=== PATIENT | female | born 1945 | race Caucasian/White ===

== ENCOUNTER 2022-06-20 11:17 | Emergency (ER) | payer MEDICARE, SELFPAY ==
[2022-06-20 11:29] VITALS: BP 213/95; PULSE 89; RESP 18; TEMP 36.1; O2SAT 96; BMI 27.8
--- NOTE | 2022-06-20 11:53 | DI.RAD.S_ITS ---
PROCEDURE: XR CHEST 2V INDICATIONS: Possible stroke TECHNIQUE: 2 views of the chest were acquired. COMPARISON: None. FINDINGS: Surgical changes and devices: None. Lungs and pleura: Lungs are clear. No pleural effusions or pneumothorax. Mediastinum: Mediastinal contours are normal. Heart size is normal. Bones and chest wall: No suspicious bony abnormalities. Soft tissues appear unremarkable. IMPRESSION: No acute cardiopulmonary pathology. Dictated by: Balbir Perry M.D. on 06/20/2022 at 12:30 Approved by: Balbir Perry M.D. on 06/20/2022 at 12:30
--- NOTE | 2022-06-20 11:54 | DI.CT.S_ITS ---
PROCEDURE: CT HEAD/BRAIN WO CON INDICATIONS: aphasia now resolved TECHNIQUE: Noncontrast 4.5 mm thick angled axial sections acquired from the foramen magnum to the vertex, with coronal and sagittal reformats. For radiation dose reduction, the following was used: automated exposure control, adjustment of mA and/or kV according to patient size. COMPARISON: None. FINDINGS: Image quality: Excellent. CSF spaces: Basal cisterns are patent. No extra-axial fluid collections. Ventricles are normal in size and shape. Brain: No midline shift. No intracranial masses or hemorrhage. Love-white matter interface is normal. Uyjk-rj-rgglxfef chronic microvascular ischemic changes manifesting as areas of hypoattenuation in the deep and periventricular white matter. Skull and face: Calvarium and visualized facial bones are intact, without suspicious lesions. Sinuses: Visualized sinuses and mastoids are clear. IMPRESSION: No acute intracranial finding. Dictated by: Kvng Garcia M.D. on 06/20/2022 at 12:19 Approved by: Kvng Garcia M.D. on 06/20/2022 at 12:21
[2022-06-20 12:09] LABS: Add Manual Diff / Slide Review NO; Basophils Absolute Auto 100 /uL (0-100); Eosinophils Absolute Auto 300 /uL (0-450); Eosinophils Percent Auto 3.6 % (2-4); Hematocrit 50.4 % (36-46); Hemoglobin 17.1 g/dL (12.0-16.0); Lymphocytes Absolute Auto 2000 /uL (1100-4500); Lymphocytes Percent Auto 28.1 % (25-40); Mean Corpuscular HGB Conc 33.8 % (30-36); Mean Corpuscular Hemoglobin 29.4 PG (26-34); Mean Corpuscular Volume 86.8 fL (80-100); Monocytes Absolute Auto 500 /uL (0-900); Neutrophils Absolute Auto 4300 /uL (1500-7000); Neutrophils Percent Auto 60.3 % (50-75); Platelet Count 239 X10^3/uL (150-400); Red Blood Cell Count 5.81 X10^6/uL (4.0-5.2); Red Cell Distribution Width 13.5 % (11.6-14.8); White Blood Cell Count 7.2 X10^3/uL (4.5-11.0)
[2022-06-20 12:10] LABS: Prothrombin Time 11.7 SECONDS (10.1-12.7)
[2022-06-20 12:15] LABS: Alanine Aminotransferase 40 IU/L (<35); Albumin 4.6 g/dL (3.5-5.0); Albumin Globulin Ratio 1.2 (1.0-2.8); Alkaline Phosphatase 100 U/L (38-126); Aspartate Aminotransferase 47 IU/L (14-36); BUN Creatinine Ratio 16.7 (6-22); Bilirubin Total 0.8 mg/dL (0.2-1.3); Blood Urea Nitrogen 16 mg/dL (7-17); Calcium 9.4 mg/dL (8.4-10.2); Carbon Dioxide 27 mmol/L (22-32); Chloride 103 mmol/L (98-107); Creatine Kinase 57 U/L (30-135); Estimated Glomerular Filt Rate > 60 mL/min (>60); Globulin 3.7 g/dL (1.7-4.1); Glucose 141 mg/dL (80-110); HEMOLYSIS 18 (0-50); Magnesium 1.9 mg/dL (1.6-2.3); Sodium 142 mmol/L (137-145); Total Protein 8.3 g/dL (6.3-8.2)
[2022-06-20 12:26] LABS: Troponin I < 0.012 ng/mL (0.01-0.034)
--- NOTE | 2022-06-20 13:05 | DI.CT.S_ITS ---
PROCEDURE: CT ANGIO HEAD AND NECK INDICATIONS: ?TIA TECHNIQUE: Noncontrast images were performed earlier in the day and not repeated. After the administration of intravenous contrast, 1 mm thick sections acquired from the aortic arch through the [place] of [place]. Post-contrast 4.5 mm thick sections then re-acquired from the foramen magnum to the vertex. 3-dimensional xmmzkzp-uaojoaqce-chdzrhvzog (MIP) and/or volume rendering reformats were acquired of the central intracranial vasculature and neck separately. For radiation dose reduction, the following was used: automated exposure control, adjustment of mA and/or kV according to patient size. COMPARISON: [facility], CT, CT HEAD/BRAIN WO CON, 06/20/2022, 12:07. FINDINGS: Image quality: Limited by bolus timing, with venous contamination. BRAIN: CSF spaces: Ventricles are normal in size and shape. Basal cisterns are patent. No extra-axial fluid collections. Brain: No midline shift. No intracranial bleeds or masses. Love-white matter interface appears intact. Skull and face: Calvarium and facial bones appear intact, without suspicious lesions. Orbits appear normal. Sinuses: Sinuses and mastoids are clear. HEAD CT ANGIOGRAPHY: Anterior circulation: Intracranial internal carotid arteries are normal in size and flow. The flow within the paired anterior cerebral arteries is normal and symmetric. The flow within the middle cerebral arteries is normal and symmetric. The anterior communicating artery is seen. No aneurysms are seen. Posterior circulation: Visualized portions of the vertebral arteries demonstrate normal caliber, and join to form a normal appearing basilar artery. Flow within the posterior cerebral arteries is normal and symmetric. No aneurysms are seen. NECK CT ANGIOGRAPHY: Carotid system: The great vessels demonstrate a conventional anatomy as they arise from the aortic arch. The origins of the common carotid arteries appear patent. The common carotid arteries demonstrate normal caliber and courses. The bifurcation regions are both widely patent. The internal carotid arteries demonstrate normal calibers. Tortuosity is seen of the internal carotid arteries. Posterior circulation: The origins of the vertebral arteries both appear widely patent. The more superior extracranial portions of both vertebral arteries also demonstrate normal courses and calibers. They join to form a normal appearing basilar artery. Soft tissues: Visualized neck soft tissues demonstrate no suspicious abnormalities. Bones: No suspicious bony lesions. Visualized cervical spine appears normally aligned. Moderate lower cervical spine degenerative changes are noted. IMPRESSION: No significant intracranial arterial abnormality is seen. Within the arteries of the neck, no hemodynamically significant stenosis can be seen. Any quantitative measurements of stenosis were performed using NASCET criteria. Dictated by: Gregory Mcdaniel M.D. on 06/20/2022 at 12:46 Approved by: Gregory Mcdaniel M.D. on 06/20/2022 at 12:48
--- NOTE | 2022-06-20 13:48 | ED.NEUROSD ---
HPI - Neuro Symptoms/Deficit <Armando Farr PA-C - Last Filed: 06/20/22 14:23> General Chief Complaint: Neuro Symptoms/Deficit Stated Complaint: TIA on Monday Time Seen by Provider: 06/20/22 12:03 Source: patient Mode of arrival: Ambulatory History of Present Illness HPI Narrative: 77-year-old female with no reported past medical history presents to the ED with a brief episode of word-finding difficulty. Patient states that the episode occurred 3 days prior to arrival, upon awakening when she tried to speak with her . Patient states that she was unable to get out the words she wanted, was speaking inappropriate words instead. Patient states she was aware of this happening at the time, the episode only lasted for a few minutes and then resolved. Patient states that she had no other symptoms at the time including chest pain, shortness of breath, headache, vision disturbances, numbness, tingling, weakness. Patient denies having any such episodes prior to this. Patient states that she usually has high blood pressure when under stress, but otherwise normotensive. Endorses that she is stressed today due to this episode and coming into the ED. in the ED, patient denies any symptoms. On Anticoagulants: No Related Data Allergies Allergy/AdvReac Type Severity Reaction Status Date / Time brompheniramine Allergy Verified 06/20/22 11:39 [From Dimetapp (brompheniramine-PPA)] phenylpropanolamine Allergy Verified 06/20/22 11:39 [From Dimetapp (brompheniramine-PPA)] sulfamethoxazole Allergy Verified 06/20/22 11:38 [From ] trimethoprim [From ] Allergy Verified 06/20/22 11:38 epinephrine AdvReac Verified 06/20/22 11:38 Review of Systems <Armando Farr PA-C - Last Filed: 06/20/22 14:23> Review of Systems ROS Unobtainable: All systems reviewed & are unremarkable except as noted in HPI and below Constitutional Constitutional: Denies chills, Denies fatigue, Denies fever(s), Denies frequent falls, Denies lethargy and Denies weakness Eyes Eyes: Denies change in vision, Denies eye discharge, Denies irritation and Denies loss of vision ENT Ears, Nose, Mouth, and Throat: Denies change in voice, Denies dizziness, Denies neck pain, Denies sore throat and Denies throat swelling Cardiovascular Cardiovascular: Denies chest pain, Denies irregular heart rhythm, Denies lightheadedness, Denies palpitations, Denies dyspnea, Denies dyspnea on exertion and Denies orthopnea Respiratory Respiratory: Denies cough, Denies dyspnea, Denies dyspnea on exertion and Denies wheezing Gastrointestinal Gastrointestinal: Denies abdominal pain, Denies change in bowel habits, Denies diarrhea, Denies nausea and Denies vomiting Genitourinary Genitourinary: Denies hematuria, Denies flank pain, Denies urinary incontinence and Denies urinary urgency Musculoskeletal Musculoskeletal: Denies back pain, Denies muscle weakness, Denies neck pain, Denies numbness and Denies tingling Integumentary/Breasts Skin/Breast: Denies pruritus, Denies erythema, Denies rash and Denies wounds Neurologic Neurologic: Denies behavioral changes, Denies confusion, Denies dizziness, Denies frequent falls, Denies loss of vision, Denies numbness, Denies tingling and Denies weakness Comments: Brief episode of word-finding difficulty Psychiatric Psychiatric: Denies anxiety, Denies behavioral changes, Denies confusion, Denies depression, Denies homicidal ideation and Denies suicidal ideation Endocrine Endocrine: Denies fatigue, Denies flushing and Denies palpitations Hematologic/Lymphatic Hematologic/Lymphatic: Denies easy bruising On Anticoagulants: No Allergic/Immunologic Allergic/Immunologic: Denies urticaria, Denies throat swelling and Denies wheezing Patient History <Armando Farr PA-C - Last Filed: 06/20/22 14:23> Social History Smoking Status: Never smoker Smoking Status: Never smoker Substance Use Type: does not use Exam <Armando Farr PA-C - Last Filed: 06/20/22 14:23> Narrative Exam Narrative: Const General:?cooperative, healthy appearing and comfortable [facility] Head:?normal to inspection Ears:?hearing grossly normal bilaterally Nose:?external nose normal Face and sinus:?normal facial exam and sinuses nontender Mouth:?oral mucosae normal Throat:?posterior oropharynx normal Eyes General:?appearance normal, both eyes and all related structures Neck Neck:?normal visual inspection and no lymphadenopathy noted Resp Effort & Inspection:?normal respiratory effort Auscultation:?clear to auscultation bilaterally Cardio Rate:?regular rate Rhythm:?regular rhythm Neuro General:?patient alert, patient awake and patient oriented x3; PERRLA, CN 1 through 12 intact bilaterally; gait normal; negative vkchae-wm-xmnt; negative pronator drift Initial Vital Signs Initial Vital Signs: Vital Signs Temperature 97.0 F L 06/20/22 11:29 Pulse Rate 89 06/20/22 11:29 Respiratory Rate 18 06/20/22 11:29 Blood Pressure 213/95 H 06/20/22 11:29 Pulse Oximetry 96 06/20/22 11:29 Oxygen Delivery Method 06/20/22 11:29 <Fred Bazzi DO - Last Filed: 06/20/22 15:10> Initial Vital Signs Initial Vital Signs: Vital Signs Temperature 97.0 F L 06/20/22 11:29 Pulse Rate 89 06/20/22 11:29 Respiratory Rate 18 06/20/22 11:29 Blood Pressure 213/95 H 06/20/22 11:29 Pulse Oximetry 96 06/20/22 11:29 Oxygen Delivery Method 06/20/22 11:29 Course <Armando Farr PA-C - Last Filed: 06/20/22 14:23> Orders Ordered: ED Orders 06/20/22 11:45 Complete Blood Count AUTO DIFF Stat Comprehensive Metabolic Panel Stat Magnesium Stat Prothrombin Time INR Stat Troponin & CK Cardiac Panel Stat 06/20/22 11:48 EKG-12 Lead Routine 06/20/22 11:53 XR chest 2V Stat 06/20/22 11:54 CT head/brain wo con Stat 06/20/22 13:05 CT angio head and neck Stat Vital Signs Vital signs: Vital Signs - 8 hr 06/20/22 11:29 06/20/22 14:35 Temperature 97.0 F L Pulse Rate 89 77 Respiratory Rate 18 17 Blood Pressure 213/95 H 161/77 H Pulse Oximetry 96 96 Oxygen Delivery Method Room Air Room Air <Fred Bazzi DO - Last Filed: 06/20/22 15:10> Orders Ordered: ED Orders 06/20/22 11:45 Complete Blood Count AUTO DIFF Stat Comprehensive Metabolic Panel Stat Magnesium Stat Prothrombin Time INR Stat Troponin & CK Cardiac Panel Stat 06/20/22 11:48 EKG-12 Lead Routine 06/20/22 11:53 XR chest 2V Stat 06/20/22 11:54 CT head/brain wo con Stat 06/20/22 13:05 CT angio head and neck Stat Vital Signs Vital signs: Vital Signs - 8 hr 06/20/22 11:29 06/20/22 14:35 Temperature 97.0 F L Pulse Rate 89 77 Respiratory Rate 18 17 Blood Pressure 213/95 H 161/77 H Pulse Oximetry 96 96 Oxygen Delivery Method Room Air Room Air MDM - Neuro Symptoms/Deficit <Armando Farr PA-C - Last Filed: 06/20/22 14:23> Lab Data Attestation: I reviewed the patient's lab results. Result diagrams: 06/20/22 11:45 06/20/22 11:45 Labs: Lab Results 06/20/22 06/20/22 06/20/22 Range/Units 11:45 11:45 11:45 WBC 7.2 (4.5-11.0) X10^3/uL RBC 5.81 H (4.0-5.2) X10^6/uL Hgb 17.1 H (12.0-16.0) g/dL Hct 50.4 H (36-46) % MCV 86.8 (80-100) fL MCH 29.4 (26-34) PG MCHC 33.8 (30-36) % RDW 13.5 (11.6-14.8) % Plt Count 239 (150-400) X10^3/uL Neut % (Auto) 60.3 (50-75) % Lymph % (Auto) 28.1 (25-40) % Boundary % (Auto) 7.0 (3-14) % Eos % (Auto) 3.6 (2-4) % Baso % (Auto) 1.0 (0-2) % Neut # (Auto) 4300 (4647-3729) /uL Lymph # (Auto) 2000 (6682-8296) /uL Bound[place] # (Auto) 500 (0-900) /uL Eos # (Auto) 300 (0-450) /uL Baso # (Auto) 100 (0-100) /uL PT 11.7 (10.1-12.7) SECONDS INR 1.0 (0.9-1.3) Sodium 142 (137-145) mmol/L Potassium 4.0 (3.4-5.1) mmol/L Chloride 103 (98-107) mmol/L Carbon Dioxide 27 (22-32) mmol/L BUN 16 (7-17) mg/dL Creatinine 0.96 (0.52-1.04) mg/dL Estimated GFR > 60 (>60) mL/min BUN/Creatinine Ratio 16.7 (6-22) Glucose 141 H (80-110) mg/dL Calcium 9.4 (8.4-10.2) mg/dL Magnesium 1.9 (1.6-2.3) mg/dL Total Bilirubin 0.8 (0.2-1.3) mg/dL AST 47 H (14-36) IU/L ALT 40 H (<35) IU/L Alkaline Phosphatase 100 (38-126) U/L Total Creatine Kinase 57 (30-135) U/L CK-MB (CK-2) TNP CK-MB (CK-2) Rel Index TNP Troponin I < 0.012 (0.01-0.034) ng/mL Total Protein 8.3 H (6.3-8.2) g/dL Albumin 4.6 (3.5-5.0) g/dL Globulin 3.7 (1.7-4.1) g/dL Albumin/Globulin Ratio 1.2 (1.0-2.8) Urine Dip Bedside Urine Glucose Negative Bedside Urine Bilirubin - Negative Bedside Urine Ketone - Negative Urine Specific [place] 1.015 Bedside Urine Occult Blood - Negative Bedside Urine pH 6 Bedside Urine Protein - Negative Bedside Urine Urobilinogen - Negative Bedside Urine Nitrite - Negative Bedside Urine Leukocytes - Negative Esterase Imaging Data CTA - brain/neck: Radiologist's Impression: PROCEDURE:? CT ANGIO HEAD AND NECK ? INDICATIONS:? ?TIA ? TECHNIQUE:? Noncontrast images were performed earlier in the day and not repeated.? ? After the administration of intravenous contrast, 1 mm thick sections acquired from the aortic arch through the [place] of [place].? Post-contrast 4.5 mm thick sections then re-acquired from the foramen magnum to the vertex.? 3-dimensional gauyces-oearwwvjd-idvxdgovph (MIP) and/or volume rendering reformats were acquired of the central intracranial vasculature and neck separately. For radiation dose reduction, the following was used:? automated exposure control, adjustment of mA and/or kV according to patient size.? ? COMPARISON:? [facility], CT, CT HEAD/BRAIN WO CON, 06/20/2022, 12:07. ? FINDINGS:? Image quality:? Limited by bolus timing, with venous contamination. ? BRAIN:? CSF spaces:? Ventricles are normal in size and shape.? Basal cisterns are patent.? No extra-axial fluid collections.? ? Brain:? No midline shift.? No intracranial bleeds or masses.? Love-white matter interface appears intact.? ? Skull and face:? Calvarium and facial bones appear intact, without suspicious lesions.? Orbits appear normal.? ? Sinuses:? Sinuses and mastoids are clear.? ? HEAD CT ANGIOGRAPHY:? Anterior circulation:? Intracranial internal carotid arteries are normal in size and flow.? The flow within the paired anterior cerebral arteries is normal and symmetric.? The flow within the middle cerebral arteries is normal and symmetric.? The anterior communicating artery is seen.? No aneurysms are seen.? ? Posterior circulation:? Visualized portions of the vertebral arteries demonstrate normal caliber, and join to form a normal appearing basilar artery.? Flow within the posterior cerebral arteries is normal and symmetric.? No aneurysms are seen.? ? NECK CT ANGIOGRAPHY:? Carotid system:? The great vessels demonstrate a conventional anatomy as they arise from the aortic arch.? The origins of the common carotid arteries appear patent.? The common carotid arteries demonstrate normal caliber and courses.? The bifurcation regions are both widely patent.? The internal carotid arteries demonstrate normal calibers.? Tortuosity is seen of the internal carotid arteries.? ? Posterior circulation:? The origins of the vertebral arteries both appear widely patent.? The more superior extracranial portions of both vertebral arteries also demonstrate normal courses and calibers.? They join to form a normal appearing basilar artery.? ? Soft tissues:? Visualized neck soft tissues demonstrate no suspicious abnormalities.? ? Bones:? No suspicious bony lesions.? Visualized cervical spine appears normally aligned.? Moderate lower cervical spine degenerative changes are noted. ? ? IMPRESSION:? No significant intracranial arterial abnormality is seen.? ? Within the arteries of the neck, no hemodynamically significant stenosis can be seen. ? ? Any quantitative measurements of stenosis were performed using NASCET criteria.? ? ? Dictated by: Gregory Mcdaniel M.D. on 06/20/2022 at 12:46 ? ? Approved by: Gregory Mcdaniel M.D. on 06/20/2022 at 12:48 ? CT scan - head: Radiologist's Impression: PROCEDURE:? CT HEAD/BRAIN WO CON ? INDICATIONS:? aphasia now resolved ? TECHNIQUE:? Noncontrast 4.5 mm thick angled axial sections acquired from the foramen magnum to the vertex, with coronal and sagittal reformats.? For radiation dose reduction, the following was used:? automated exposure control, adjustment of mA and/or kV according to patient size.? ? COMPARISON:? None. ? FINDINGS:? Image quality:? Excellent.? ? CSF spaces:? Basal cisterns are patent.? No extra-axial fluid collections.? Ventricles are normal in size and shape.? ? Brain:? No midline shift.? No intracranial masses or hemorrhage.? Love-white matter interface is normal.? Oqvi-mt-vxszwpey chronic microvascular ischemic changes manifesting as areas of hypoattenuation in the deep and periventricular white matter. ? Skull and face:? Calvarium and visualized facial bones are intact, without suspicious lesions.? ? Sinuses:? Visualized sinuses and mastoids are clear.? ? IMPRESSION:? No acute intracranial finding. ? ? Dictated by: Kvng Garcia M.D. on 06/20/2022 at 12:19 ? ? Approved by: Kvng Garcia M.D. on 06/20/2022 at 12:21 ? Chest x-ray: Radiologist's Impression: PROCEDURE:? XR CHEST 2V ? INDICATIONS:? Possible stroke ? TECHNIQUE:? 2 views of the chest were acquired.? ? COMPARISON:? None. ? FINDINGS:? ? Surgical changes and devices:? None.? ? Lungs and pleura:? Lungs are clear.? No pleural effusions or pneumothorax.? ? Mediastinum:? Mediastinal contours are normal.? Heart size is normal.? ? Bones and chest wall:? No suspicious bony abnormalities.? Soft tissues appear unremarkable.? ? IMPRESSION:? No acute cardiopulmonary pathology. ? ? Dictated by: Balbir Perry M.D. on 06/20/2022 at 12:30 ? ? Approved by: Balbir Perry M.D. on 06/20/2022 at 12:30 ? MDM Narrative Medical decision making narrative: 77-year-old female with no reported past medical history presents to the ED with a brief episode of word-finding difficulty. Concern for TIA versus CVA versus intracranial hemorrhage versus other. Will obtain chest x-ray, EKG, labs, UA, CT head, CTA head and neck. Workup was largely unremarkable. Patient neurologically intact through her stay in the ED. Patient initially hypertensive to 213 over 95 on presentation. Repeat blood pressure 161/77 Patient agrees to see a neurologist as soon as possible. Patient will also follow up with her GP. ED return precautions were discussed with patient. She verbalized understanding. <Fred Bazzi, DO - Last Filed: 06/20/22 15:10> Lab Data Labs: Lab Results 06/20/22 06/20/22 06/20/22 Range/Units 11:45 11:45 11:45 WBC 7.2 (4.5-11.0) X10^3/uL RBC 5.81 H (4.0-5.2) X10^6/uL Hgb 17.1 H (12.0-16.0) g/dL Hct 50.4 H (36-46) % MCV 86.8 (80-100) fL MCH 29.4 (26-34) PG MCHC 33.8 (30-36) % RDW 13.5 (11.6-14.8) % Plt Count 239 (150-400) X10^3/uL Neut % (Auto) 60.3 (50-75) % Lymph % (Auto) 28.1 (25-40) % Boundary % (Auto) 7.0 (3-14) % Eos % (Auto) 3.6 (2-4) % Baso % (Auto) 1.0 (0-2) % Neut # (Auto) 4300 (7178-2787) /uL Lymph # (Auto) 2000 (7339-9792) /uL [place] # (Auto) 500 (0-900) /uL Eos # (Auto) 300 (0-450) /uL Baso # (Auto) 100 (0-100) /uL PT 11.7 (10.1-12.7) SECONDS INR 1.0 (0.9-1.3) Sodium 142 (137-145) mmol/L Potassium 4.0 (3.4-5.1) mmol/L Chloride 103 (98-107) mmol/L Carbon Dioxide 27 (22-32) mmol/L BUN 16 (7-17) mg/dL Creatinine 0.96 (0.52-1.04) mg/dL Estimated GFR > 60 (>60) mL/min BUN/Creatinine Ratio 16.7 (6-22) Glucose 141 H (80-110) mg/dL Calcium 9.4 (8.4-10.2) mg/dL Magnesium 1.9 (1.6-2.3) mg/dL Total Bilirubin 0.8 (0.2-1.3) mg/dL AST 47 H (14-36) IU/L ALT 40 H (<35) IU/L Alkaline Phosphatase 100 (38-126) U/L Total Creatine Kinase 57 (30-135) U/L CK-MB (CK-2) TNP CK-MB (CK-2) Rel Index TNP Troponin I < 0.012 (0.01-0.034) ng/mL Total Protein 8.3 H (6.3-8.2) g/dL Albumin 4.6 (3.5-5.0) g/dL Globulin 3.7 (1.7-4.1) g/dL Albumin/Globulin Ratio 1.2 (1.0-2.8) Urine Dip Bedside Urine Glucose Negative Bedside Urine Bilirubin - Negative Bedside Urine Ketone - Negative Urine Specific [place] 1.015 Bedside Urine Occult Blood - Negative Bedside Urine pH 6 Bedside Urine Protein - Negative Bedside Urine Urobilinogen - Negative Bedside Urine Nitrite - Negative Bedside Urine Leukocytes - Negative Esterase Discharge Plan Departure Patient Disposition: Home Clinical Impression: Transient cerebral ischemia Instructions: DI for Transient Ischemic Attack Activity Restrictions/Additional Instructions: You were evaluated in the ED today for a brief episode of word-finding difficulty. Your workup was reassuring. Your chest x-ray, EKG, CT head, CT angiogram head and neck, labs, urine were all normal. It is possible based on your history and symptoms that you suffered a TIA, also known as a transient ischemic attack. Please continue to monitor for symptoms, return to the ED if you experience any symptoms such as speech difficulty, weakness, numbness. Please follow-up with a neurologist as soon as possible for a further evaluation and workup. Referrals: Miscellaneous,Doctor, [Primary Care Provider] - Visit Report Forms: Patient Portal/API <Fred Bazzi DO - Last Filed: 06/20/22 15:10> Cosign ED Attending Cosignature Attestation: Dr Bazzi Co-Sign Statement: I was available for consultation during this patient's emergency department visit. This chart is signed by myself for administrative purposes only. I did not have direct contact with this patient during this visit. They were seen independently by the APC.
[2022-06-20 14:35] VITALS: BP 161/77; PULSE 77; RESP 17; O2SAT 96
== END 2022-06-20 14:36 | disposition home or self-care (01) ==
PROVIDERS: Emergency Medicine; Emergency Provider Student in an Organized Health Care Education/Training Program
DX: G45.9 Transient cerebral ischemic attack, unspecified (principal); R03.0 Elevated blood-pressure reading, without diagnosis of hypertension
CPT/HCPCS: 36415; 70450; 70496; 70498; 71046; 80053; 81003; 82550; 83735; 84484; 85025; 85610; 93005; 93010; 99284; Q9967